=== PATIENT | male | born 1950 | race Caucasian/White ===

== ENCOUNTER → 2018-10-08 | Outpatient (CLI) | payer OTHER ==
[~2018-10-08] MED LIST: ASPIR 8181 MG PO; BYSTOLIC20 MG PO; KLOR-CON 1010 MEQ PO; LIPITOR 20 MG T20 M1 PO; NEURONTIN 300300 M1 PO; OMEPRAZOLE40 MG PO; SPIRIVA INH; SYMBICORT160 MCG/4. INH; XANAX1 MG PO
--- NOTE | ~2018-10-08 | PAINCON ---
[address] [address] PAIN MANAGEMENT CONSULTATION Name: MURIEL JACINTO JESSE Room: [facility] AlyssaRoslyn#: [id number] Admission: 10/08/18 Attend Phys: Boris Goins MD Discharge: Date of : 54 Report #: [id number] THIS REPORT FOR: //name// CC: Jonathon Goins DATE OF SERVICE: 10/08/2018 CHIEF COMPLAINT: Lower mid back, neck pain, right hip pain. HISTORY: The patient is a 68-year-old gentleman who has been referred to the pain clinic. The patient states that he has had pain, which has been problematic for a number of years. It involves his lower back as well as radiating down his legs and involving his pelvis. Notes that the pain is problematic and rates it as a 3-4 while sitting. He has tried medications in the past. About the last 10 months, he has been off opioids. He did try fentanyl and some other opioid medications and did not find that ocean transportation intermediary. They were beneficial. He has suffered from pain over the past 20 years. He has been ambulating with use of a cane. Notes that the pain is worse when he is walking, sitting, standing, climbing stairs, bending and lifting. He states that he has a history of spinal stenosis. He has seen a surgeon, but surgery at this juncture, has not been recommended secondary to his COPD. Long distance walking is excruciating. As you may recall, he has worked hard throughout his life. 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 ALLERGIES: CIPROFLOXACIN, MAMTA INHIBITORS, AND PROMETHAZINE. MEDICATIONS: Alprazolam 1 mg 4 times daily, aspirin 81 mg, Lipitor 20 mg, Symbicort 160/4.5, Bystolic 20 mg, omeprazole 40 mg, potassium 10 mEq b.i.d., and Spiriva. PAST MEDICAL HISTORY: Asthma, hypertension, lung disease, hepatitis C, joint disease/arthritis generalized anxiety disorder, insomnia, coronary artery atherosclerosis, hyperlipidemia, benign prostatic hypertrophy, occasional tremors, lumbar canal stenosis, alcoholic abuse, esophageal reflux, chronic tension type headaches, peripheral vascular disease, history of atrial fibrillation, renal calculus. PAST SURGICAL HISTORY: Stents gallbladder surgery 2014, appendectomy 2017, 2017, lesion removal 2017. SOCIAL HISTORY: He is a sheet metal layout mechanic. He has not worked in the last 9 years. REVIEW OF SYSTEMS: Headaches, hearing loss, ringing in the ears, [place] [address] PAIN MANAGEMENT CONSULTATION Name: MURIEL JACINTO Room: [facility]#: [id number] Admission: 10/08/18 Attend Phys: Boris Goins MD Discharge: Date of : 54 Report #: [id number] voice changes, shortness of breath while lying flat, asthma, wheezing, kidney stones, sexual difficulty, joint pain, joint stiffness, weakness of muscles and joint, muscle cramps, back pain, difficulty walking, recurrent headaches, lightheadedness, dizziness, numbness and tingling sensation, tremors, head injury, memory loss, confusion, nervousness, easy bruising. LABORATORY DATA: MRI of the cervical spine dated 05/22/2018 indicates: 1. C2-C3 small diffuse osteophyte complex, asymmetric to the left. Mild spinal canal stenosis, moderate left neural foraminal narrowing secondary to the left greater than right facet and uncovertebral joint arthrosis. 2. C3-C4 disk osteophyte complex, asymmetric to the left. Bogq-bx-kzxdkoie spinal canal stenosis. Moderate right and severe left neural foraminal narrowing secondary to asymmetric uncovertebral joint and facet arthropathy. 3. C4-C5 disk osteophyte complex. Mild spinal stenosis. Moderate to severe right and severe left neural foraminal narrowing secondary to uncovertebral joint and facet arthropathy. 4. C5-C6 disk osteophyte complex. Unnw-jc-ukymmsur spinal canal stenosis, left greater than right, severe bilateral neural foraminal narrowing secondary to uncovertebral joint and facet arthropathy. 5. C6-C7 disk osteophyte complex. Mild spinal canal stenosis. Mild left neural foraminal narrowing secondary to uncovertebral joint and facet arthropathy. 6. C7-T10 trace anterolisthesis and mild disk bulge. No significant spinal canal stenosis. MRI of the lumbar spine dated 11/18/2014: 1. L1-L2. Desiccation central annular disk bulge. Hypertrophic facet arthropathy and mild posterior ligamentum hypertrophy. No evidence of disk herniation, spinal stenosis or significant foraminal narrowing. Thecal sac 1.3 cm. 2. L2-L3 mild annular disk bulge. Moderate hypertrophic facet arthropathy. Mild-to moderate posterior ligamentum hypertrophy is present. This produces a mild narrowing of the central canal without evidence of high grade stenosis. There is a mild left foraminal narrowing. Thecal sac 0.8 cm AP. 3. L3-L4, mild central annular disk bulge. Moderate/marked hypertrophic facet arthropathy. There is a posterior ligamentum hypertrophy and there is a posterior epidural lipomatosis present contributing to stenosis of the spinal cord and canal. Thecal sac 0.5 cm AP. 4. L4-L5 disk degeneration and mild central annular disk bulge. There is asymmetric increased soft tissue density with left neural foramen, likely representing small left foraminal disk herniation. There is also a small focal area of asymmetry with soft tissue posterior to the L4 vertebral body with a left lateral recess of L4, possibly representing a small cranial migrated sequestered disk fragment. PAIN CLINIC ASSESSMENT/PQRS: [address] [address] PAIN MANAGEMENT CONSULTATION Name: CARMENCITAShilpaMURIEL JESSE Room: [facility]#: [id number] Admission: 10/08/18 Attend Phys: Boris Goins MD Discharge: Date of : 54 Report #: [id number] 1. History of osteoarthritis. The patient has some osteoarthritic changes in his back. He is not being treated for rheumatoid arthritis. 2. Height 5 feet 10 inches, weight 221 pounds, BMI is 38.1. 3. Vital signs: Blood pressure 152/92, heart rate 63, respiratory rate 16, room air saturation 93%. Temperature 98.2. 4. Pain intensity 3-4/10. 5. Fall history: The patient has not fallen in the last 3 months. 6. Blood thinner. The patient is not on a blood thinning medication. 7. Hypertension. The patient is being treated for hypertension. 8. Opioids greater than 6 weeks. The patient is not on opioid medication at this juncture. Has used opioids in the past. 9. Risk assessment tool, low for opioid use. 10. Functional assessment tool. 11. Recreational drug use. The patient denies use of recreational drugs. 12. Tobacco: The patient chews tobacco. 13. Alcohol: The patient states that he is not using alcohol at this juncture. PHYSICAL EXAMINATION: GENERAL: The patient is a well-developed, well-nourished white male. Appears his stated age. He is alert and oriented x 3. His affect is appropriate. Speech is fluent. HEENT: Normocephalic, atraumatic. Extraocular eye muscles intact. Sclerae nonicteric. Mucous membranes moist. NECK: Without adenopathy. Some limited range of motion in the neck area. EXTREMITIES: Upper extremity muscle strength judged to be 5-/5 for the major muscle groups in the upper extremity. HEART: Regular rate. ABDOMEN: Nontender. Bowel sounds present. MUSCULOSKELETAL: The patient has somewhat of a scoliosis to his back. Has without significant lordosis. Complains of pain in the lower portion of his back and in the thoracic area. Walks with a cane. He has been using this for about 2-3 years. Tries to maintain and keeps the weight off his right hip. Complains of pain and discomfort in the L2-L3 dermatomal distribution today. IMPRESSION: 1. Lumbar radiculopathy with L2-L3 area. 2. Asthma. 3. Hypertension. 4. Lung disease. 5. Hepatitis C. 6. Joint disease/arthritis. 7. Generalized anxiety disorder. 8. Insomnia. 9. Coronary artery atherosclerosis. 10. Hyperlipidemia. 11. [place] [address] PAIN MANAGEMENT CONSULTATION Name: MURIEL JACINTO JESSE Room: [facility] Dennis#: [id number] Admission: 10/08/18 Attend Phys: Boris Goins MD Discharge: Date of : 54 Report #: [id number] 12. Occasional tremors. 13. Lumbar canal stenosis. 14. Alcoholic abuse. 15. Esophageal reflux. 16. Chronic tension type headaches. 17. Peripheral vascular disease. 18. History of atrial fibrillation, renal calculus. RECOMMENDATION: We discussed treatment options with the patient. At this juncture, he will return to the Pain clinic at which time we would then proceed with an epidural steroid injection at the mid lumbar area with hopes of improving his pain condition. Risks and benefits again, we will again we reviewed at the time of the procedure. We would like to thank you for letting us participate in his care. We hope he continues to improve. By: [id number]. Hank Goins MD /DUSTIN
== END ==
LOC: M.PC 10:00
DX: M54.16 Radiculopathy, lumbar region (principal); J45.909 Unspecified asthma, uncomplicated; I10 Essential (primary) hypertension; I25.10 Atherosclerotic heart disease of native coronary artery without angina pectoris; E78.5 Hyperlipidemia, unspecified; K21.9 Gastro-esophageal reflux disease without esophagitis; G44.229 Chronic tension-type headache, not intractable; I73.9 Peripheral vascular disease, unspecified; I48.91 Unspecified atrial fibrillation; F41.9 Anxiety disorder, unspecified; Z88.8 Allergy status to other drugs, medicaments and biological substances; Z79.899 Other long term (current) drug therapy; Z79.82 Long term (current) use of aspirin

== ENCOUNTER → 2018-10-15 | Outpatient (CLI) | payer OTHER ==
--- NOTE | ~2018-10-15 | PAINCON ---
[address] [address] PAIN MANAGEMENT CONSULTATION Name: MURIEL JACINTO JESSE [facility] [id number] Admission: 10/15/18 Attend Phys: Boris Goins MD Discharge: Date of : 54 Report #: [id number] THIS REPORT FOR: //name// CC: Jonathon Goins DATE OF SERVICE: 10/15/2018 CHIEF COMPLAINT: Here for epidural injection. HISTORY: The patient is a 68-year-old gentleman who has been seen in the Pain Clinic. As you recall, he is having pain and discomfort, which has been problematic for a number of years. It involves his lower back. He is experiencing pain that radiates down into his pelvis. He rates his pain as a 3-4 when he is sitting. He has used medications. Over the last 10 months, he has refrained from using opioids. He has suffered pain over the last 20 years. Pain is worse when he is walking, sitting, standing, climbing stairs, bending and lifting. He has a history, as you may recall, of spinal stenosis. He has COPD. He is not a good surgical candidate at this juncture. 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 ALLERGIES: CIPROFLOXACIN, MAMTA INHIBITORS, PROMETHAZINE. CURRENT MEDICATIONS: Alprazolam 1 mg 4 times daily, aspirin 81 mg, Lipitor 20 mg, Symbicort 160/4.5, Bystolic 20 mg, omeprazole 40 mg, potassium 10 mEq b.i.d., Spiriva. PAIN CLINIC ASSESSMENT AND PQRS: 1. History of osteoarthritis: The patient has some arthritic changes in his back. He is not being treated for rheumatoid arthritis. 2. Height 5 feet 10 inches, weight 221 pounds, BMI is 31.8. 3. Vital signs: Blood pressure 152/92, heart rate 63, respiratory rate 16, room air saturation 93%, temperature 98.2. 4. Pain intensity: 3-4/10 5. Fall history: The patient has not fallen in the last 3 months. 6. Blood thinner: The patient is not on a blood thinning medication. 7. Hypertension. The patient is being treated for hypertension. 8. Opioids greater than 6 weeks: The patient is not on opioid regimen. 9. Risk assessment tool: Low for opioid low for opioid use. 10. Functional assessment tool. 11. Recreational drug use: The patient denies. 12. Tobacco: He denies smoking tobacco, but does chew tobacco. 13. Alcohol: The patient states he is not drinking alcohol at this juncture. He has used alcohol to excess in the past. PHYSICAL EXAMINATION: [place] [address] PAIN MANAGEMENT CONSULTATION Name: MURIEL JACINTO JESSE [facility]#: [id number] Admission: 10/15/18 Attend Phys: Boris Goins MD Discharge: Date of : 54 Report #: [id number] GENERAL: The patient is a well-developed, well-nourished white male. Appears his stated age. He is alert and oriented x 3. His affect is appropriate. Speech is fluent. HEENT: Normocephalic, atraumatic. Extraocular eye muscles intact. Sclerae nonicteric. Mucous membranes are moist. HEART: Regular rate. ABDOMEN: Nontender. Bowel sounds present. MUSCULOSKELETAL: Upper extremity muscle strength is judged to be 5/5 for the major muscle groups in the upper extremity. The patient has some scoliosis in his back. He is without significant lordosis. He complains of pain in the lower portion of his back and in the thoracic area. He does walk and ambulate with a cane, has been using this for about 2-3 years. He complains of pain and discomfort in the L2-L3 dermatomal distribution today. IMPRESSION: 1. Lumbar radiculopathy, L2-L3. 2. Asthma. 3. Hypertension. 4. Lung disease. 5. Hepatitis C. 6. Joint disease/arthritis. 7. Generalized anxiety disorder. 8. Insomnia. 9. Coronary artery disease/atherosclerosis. 10. Hyperlipidemia. 11. Benign prostatic hypertrophy. 12. Occasional tremors. 13. Lumbar canal stenosis. 14. Alcohol abuse. 15. Esophageal reflux. 16. Chronic tension type headaches. 17. Peripheral vascular disease. 18. History of atrial fibrillation. 19. Renal calculi. RECOMMENDATIONS: We discussed treatment options with the patient. At this juncture, we will proceed with an epidural steroid injection. Risks and benefits of the procedure were discussed. They include but are not limited to infection, worsening pain, no improvement in pain, nerve damage, paralysis, and the patient elects to proceed. PROCEDURE NOTE: The patient was taken to the procedure area. He was then assisted in getting on the examination table. His back was sterilely prepped with betadine solution. A 0.25% bupivacaine was infiltrated at the L2-L3 interspace. A 17-gauge Tuohy with loss of resistance technique was used to gain access to the epidural space. There was no CSF, heme or paresthesia. [address] [address] PAIN MANAGEMENT CONSULTATION Name: MURIEL JACINTO [facility]: [facility]#: [id number] Admission: 10/15/18 Attend Phys: Boris Goins MD Discharge: Date of : 54 Report #: [id number] 80 mg Depo-Medrol, 40 mg triamcinolone, and 2 mL of 0.25% bupivacaine was injected. The patient tolerated the procedure well. There were no complications. A total of 15 seconds fluoroscopy time was used. We would like to thank you for letting us participate in his care. We hope he continues to improve. By: [id number]. Hank Goins MD /nt
== END | disposition home or self-care (01) ==
LOC: M.PC 05:14
DX: M54.16 Radiculopathy, lumbar region (principal); G89.29 Other chronic pain; I10 Essential (primary) hypertension; I25.10 Atherosclerotic heart disease of native coronary artery without angina pectoris; I48.91 Unspecified atrial fibrillation; J45.909 Unspecified asthma, uncomplicated; M19.90 Unspecified osteoarthritis, unspecified site; F41.1 Generalized anxiety disorder; G47.00 Insomnia, unspecified; E78.5 Hyperlipidemia, unspecified; N40.0 Benign prostatic hyperplasia without lower urinary tract symptoms; K21.9 Gastro-esophageal reflux disease without esophagitis; G44.229 Chronic tension-type headache, not intractable; I73.9 Peripheral vascular disease, unspecified; Z87.442 Personal history of urinary calculi; Z86.19 Personal history of other infectious and parasitic diseases; Z79.899 Other long term (current) drug therapy; Z79.01 Long term (current) use of anticoagulants; Z98.890 Other specified postprocedural states; Z88.8 Allergy status to other drugs, medicaments and biological substances; Z79.82 Long term (current) use of aspirin

== ENCOUNTER → 2018-12-03 | Outpatient (CLI) | payer OTHER ==
[~2018-12-03] MED LIST changes: +ELIQUIS5 MG PO; +FLECAINIDE ACET50 M1 PO
--- NOTE | 2018-12-07 09:16 | PAINCON ---
[address] [address] PAIN MANAGEMENT CONSULTATION Name: MURIEL JACINTO JESSE Room: [facility] Jeannie#: [id number] Admission: 12/03/18 Attend Phys: Boris Goins MD Discharge: Date of : 54 Report #: [id number] THIS REPORT FOR: //name// CC: Jonathon Goins DATE OF SERVICE: 12/03/2018 CHIEF COMPLAINT: Here for an epidural injection, pain improved after last treatment. HISTORY: The patient is a 68-year-old gentleman who has been seen in the pain clinic because of lumbar radiculopathy. He has had problems with his back for a number of years. He has some significant arthritic changes in the low back area. He returns today with the desire to undergo another epidural steroid injection. He gleans benefit from the last injection. There have been no complications. He feels that he occasionally has some sharp pains down to his right leg. He is no longer having leg numbness. His right hip pain is problematic on occasion. He has recently been diagnosed with atrial fibrillation. Overall, things are going reasonably well. He has used gabapentin 300 mg. He has stopped taking his Eliquis for the last 3 days. He will resume this after the procedure. ALLERGIES: CIPROFLOXACIN, MAMTA INHIBITORS, PROMETHAZINE. CURRENT MEDICATIONS: Alprazolam 1 mg 4 times daily, aspirin 81 mg, Lipitor 20 mg, Symbicort 160/4.5, Bystolic 20 mg, omeprazole 40 mg, potassium 10 mEq b.i.d., Spiriva. PAIN CLINIC ASSESSMENT AND PQRS: 1. History of osteoarthritis. The patient has some arthritic changes in his low back. He is not being treated for rheumatoid arthritis. 2. Height 5 feet 10 inches, weight 219 pounds, BMI is 31. 3. Vital Signs: Blood pressure 119/78, heart rate 65, respiratory rate 16, room air saturation is 93%. 4. Temperature 98.2. 5. Pain intensity, 03/26. 6. Blood thinner. The patient has stopped taking the Eliquis for the last 3 days with a desire to undergo an epidural injection. 7. Fall history: The patient has not fallen in the last 3 months. 8. Hypertension. The patient is being treated for hypertension. 9. Opioids greater than 6 weeks. The patient is not on an opioid regimen. 10. Risk assessment tool, low for opioid use. 11. Functional assessment tool. 12. Recreational drug use, the patient denies. 13. Tobacco: The patient denies smoking cigarettes, [place] [address] PAIN MANAGEMENT CONSULTATION Name: MURIEL JACINTO JESSE Room: [facility]#: [id number] Admission: 12/03/18 Attend Phys: Boris Goins MD Discharge: Date of : 54 Report #: [id number] 14. Alcohol: The patient is not drinking alcohol on a regular basis. Did use alcohol to an excess in the past. PHYSICAL EXAMINATION: GENERAL: The patient is a well-developed, well-nourished, white male. Appears his stated age. He is alert and oriented x 3. His affect is appropriate. Speech is fluent. HEENT: Normocephalic, atraumatic. Extraocular eye muscles intact. Sclerae nonicteric. Mucous membranes are moist. NECK: Without adenopathy or JVD. HEART: Regular rate at this juncture. ABDOMEN: Nontender. Bowel sounds present. MUSCULOSKELETAL: Upper extremity muscle strength judged to be 5/5 for the major muscle groups in the upper extremity. The patient has some scoliosis in the lower portion of his back. He is without significant lordosis. Complains of pain in the lower portion of his back in the thoracic area. Walks with a cane. Complains of pain in the L2-L3 dermatomal distribution. IMPRESSION: 1. Lumbar radiculopathy, L2-L3. 2. Asthma. 3. Hypertension. 4. Lung disease. 5. Hepatitis C. 6. Joint disease/arthritis. 7. Generalized anxiety disorder. 8. Insomnia. 9. Coronary artery disease/atherosclerosis. 10. Hyperlipidemia. 11. Benign prostatic hypertrophy. 12. Occasional tremors. 13. Lumbar canal stenosis. 14. Alcohol abuse. 15. Esophageal reflux. 16. Chronic tension type headaches. 17. Peripheral vascular disease. 18. History of atrial fibrillation. 19. Renal calculi. RECOMMENDATIONS: We discussed treatment options with the patient. At this juncture, we will proceed with another epidural steroid injection. The patient noted benefits from the last injection. There were no complications. We reviewed the risks and benefits with the patient. They could include but are not limited to infection, worsening of pain, nerve damage and the patient elects to proceed. [address] [address] PAIN MANAGEMENT CONSULTATION Name: MURIEL JACINTO [facility] [id number] Admission: 12/03/18 Attend Phys: Boris Goins MD Discharge: Date of : 54 Report #: [id number] PROCEDURE NOTE: The patient was taken to the procedure area. He was then assisted in getting on the examination table. A pillow was placed under his abdomen to bolster and improve positioning. His back was sterilely prepped with Betadine solution and allowed to dry. Fluoroscopy using anterior, posterior as well as lateral viewing were implemented. A 0.25% bupivacaine was infiltrated at the L2-L3 interspace on the right. This area was then anesthetized with a 25-gauge needle and local anesthetic. A 17-gauge Tuohy with loss of resistance technique was used to gain access to the epidural space. There was no CSF, heme or paresthesia. Total of 80 mg Depo-Medrol, 40 mg triamcinolone and 2 mL of 0.25% bupivacaine was injected. The patient tolerated the procedure well. There were no complications. A total of 31 seconds fluoroscopy time was used. We would like to thank you for letting us participate in his care. We hope he continues to improve. <ELECTRONICALLY SIGNED> By: Boris Goins MD 12/07/18 0916 [id number] 2250N. Hank Goins MD /[facility]
== END | disposition home or self-care (01) ==
LOC: M.PC 04:59
DX: M54.16 Radiculopathy, lumbar region (principal); G89.29 Other chronic pain; I10 Essential (primary) hypertension; J45.909 Unspecified asthma, uncomplicated; M19.90 Unspecified osteoarthritis, unspecified site; B19.20 Unspecified viral hepatitis C without hepatic coma; I25.10 Atherosclerotic heart disease of native coronary artery without angina pectoris; F41.1 Generalized anxiety disorder; E78.5 Hyperlipidemia, unspecified; N40.0 Benign prostatic hyperplasia without lower urinary tract symptoms; G47.00 Insomnia, unspecified; K21.9 Gastro-esophageal reflux disease without esophagitis; G44.229 Chronic tension-type headache, not intractable; I73.9 Peripheral vascular disease, unspecified; I48.91 Unspecified atrial fibrillation; Z87.442 Personal history of urinary calculi; Z79.01 Long term (current) use of anticoagulants; Z98.890 Other specified postprocedural states; Z79.899 Other long term (current) drug therapy; Z88.8 Allergy status to other drugs, medicaments and biological substances

== ENCOUNTER → 2019-01-05 | Outpatient (CLI) | payer OTHER ==
--- NOTE | 2019-01-06 09:09 | PAINCON ---
[address] [address] PAIN MANAGEMENT CONSULTATION Name: MURIEL JACINTO [id number] Admission: 01/05/19 Attend Phys: Boris Goins MD Discharge: Date of : 54 Report #: [id number] THIS REPORT FOR: //name// CC: SHANELLE Goins DATE OF SERVICE: 01/05/2019 CHIEF COMPLAINT: Low back pain as well as pain in the right hip and the groin area. HISTORY: The patient is a 68-year-old gentleman, who has been seen in the pain clinic because of lumbar radiculopathy. He has undergone epidural steroid injections. The first injection was quite beneficial. He noticed some increase in his back pain as well as the leg pain. Last injection was helpful, but not as much as the first. He has returned today with the hopes of undergoing a third epidural steroid injection with increased pain benefit. He has significant arthritic changes and pain in his neck. He has limitation of movement of his right leg. He has some significant limitations in inversion, eversion, extension, and flexion of his hip. This is on the right side. Also, has a history of atrial fibrillation. He has stopped taking his Eliquis with the hopes of undergoing an injection today. ALLERGIES: CIPROFLOXACIN, MAMTA INHIBITORS, PROMETHAZINE. CURRENT MEDICATIONS: Alprazolam 1 mg 4 times daily, aspirin 81 mg, Lipitor 20 mg, Symbicort 160/4.5, Bystolic 20 mg, omeprazole 40 mg, potassium 10 mEq, Spiriva. PAIN CLINIC ASSESSMENT AND PQRS: 1. The patient has some arthritic changes in his low back. He is not being treated for rheumatoid arthritis. 2. Height 5 feet 10 inches, weight is 221 pounds, BMI is 31. 3. Vital signs: Blood pressure 136/79, heart rate 54, respiratory rate 16, room air saturation 91%, temperature 98.5. 4. Pain intensity 05/24. 5. Fall history: The patient has not fallen in the last 3 months. 6. Blood thinner. The patient has stopped taking his blood thinning medications today with a desire to undergo an epidural injection. 7. Opioids greater than 6 weeks. The patient is not receiving any frequent opioid regimen. 8. Risk assessment tool, low for opioid use. 9. Functional assessment tool. 10. Recreational drug use. The patient denies. 11. Tobacco: The patient denies smoking, [place] [address] PAIN MANAGEMENT CONSULTATION Name: MURIEL JACINTO Room: [facility]#: [id number] Admission: 01/05/19 Attend Phys: Boris Goins MD Discharge: Date of : 54 Report #: [id number] 12. Alcohol: The patient is not drinking alcohol on a regular basis. Did use alcohol to an excess in the past. PHYSICAL EXAMINATION: GENERAL: The patient is a well-developed, well-nourished white male. Appears his stated age. He is alert and oriented x 3. His affect is appropriate. Speech is fluent. HEENT: Normocephalic, atraumatic. Extraocular eye muscles intact. Sclerae nonicteric. Mucous membranes are moist. NECK: Without adenopathy or JVD. HEART: Regular rate. History of atrial fibrillation. ABDOMEN: Nontender. Bowel sounds present. MUSCULOSKELETAL: Upper extremity muscle strength judged to be 5/5 for the major muscle groups in the upper extremity. The patient walks with use of a cane on the right side because of weakness in his right leg. He has limited range of motion with the right leg. He is unable to cross his right leg up on the left. He has some limited movement to internal and external rotation of his leg. This causes some pain and discomfort in the area of his groin. Has a tender area in the area of the right greater trochanteric bursa. Walks with use of a cane. Has a very antalgic gait. Complains of pain in the L3-L4 dermatomal distribution at this point. IMPRESSION: 1. Lumbar radiculopathy with L3-L4. 2. Asthma. 3. Hypertension. 4. Lung disease. 5. Hepatitis C. 6. Joint disease/arthritis. 7. Generalized anxiety disorder. 8. Insomnia. 9. Coronary artery disease/atherosclerosis. 10. Hyperlipidemia. 11. Benign prostatic hypertrophy. 12. Occasional tremors. 13. Lumbar canal stenosis. 14. Alcohol abuse. 15. Esophageal reflux. 16. Chronic tension type headaches. 17. Peripheral vascular disease. 18. History of atrial fibrillation. 19. Renal cell calculi. RECOMMENDATIONS: We discussed treatment options with the patient. Risks and benefits of an epidural steroid injection were discussed. They include but are not limited to infection, worsening pain, no improvement in pain, spinal [facility] [address] [place] [address] PAIN MANAGEMENT CONSULTATION Name: MURIEL JACINTO Room: [facility]#: [id number] Admission: 01/05/19 Attend Phys: Boris Goins MD Discharge: Date of : 54 Report #: [id number] headache, and the patient elects to proceed. We have discussed the treatment with the patient. He does have a significant amount of arthritis. We will proceed with an epidural steroid injection at the L3-L4 interspace. He complains the pain is radiating down the mid portion of his thigh and pain toward the medial portion of his knee. PROCEDURE NOTE: The patient was assisted in getting on the examination table. His back was sterilely prepped with a Betadine solution. A pillow was placed under his abdomen to bolster and improve positioning. Fluoroscopy using anterior, posterior as well as lateral viewing were used to identify the L3-L4 interspace. This area had been sterilely prepped with Betadine. A 25-gauge needle was then used to anesthetize the midline area. A 0.25% bupivacaine was infiltrated. A 17-gauge Tuohy with loss of resistance technique was used to gain access to the epidural space. There was no CSF, heme or paresthesia. Total of 80 mg Depo-Medrol, 40 mg triamcinolone and 2 mL of 0.25% bupivacaine was injected. The patient tolerated the procedure well. There were no complications. The patient's pain decreased to 2/10 at the time of his discharge. Total fluoroscopy time was 10 seconds. We would like to thank you for letting us participate in his care. We hope he continues to improve. He will call us if he has any concerns. <ELECTRONICALLY SIGNED> By: Boris Goins MD 01/06/19 0909 [id number]. MD mario Lovell
== END | disposition home or self-care (01) ==
LOC: M.PC 05:22
DX: M54.5 Low back pain (principal); M54.16 Radiculopathy, lumbar region; G89.29 Other chronic pain; I10 Essential (primary) hypertension; I25.10 Atherosclerotic heart disease of native coronary artery without angina pectoris; J45.909 Unspecified asthma, uncomplicated; M19.90 Unspecified osteoarthritis, unspecified site; F41.1 Generalized anxiety disorder; G47.00 Insomnia, unspecified; E78.5 Hyperlipidemia, unspecified; N40.0 Benign prostatic hyperplasia without lower urinary tract symptoms; K21.9 Gastro-esophageal reflux disease without esophagitis; G44.229 Chronic tension-type headache, not intractable; I73.9 Peripheral vascular disease, unspecified; I48.91 Unspecified atrial fibrillation; Z87.442 Personal history of urinary calculi; Z98.890 Other specified postprocedural states; Z79.899 Other long term (current) drug therapy; Z86.19 Personal history of other infectious and parasitic diseases

== ENCOUNTER → 2019-05-18 | Outpatient (CLI) | payer OTHER ==
--- NOTE | 2019-06-01 09:57 | PAINCON ---
[address] [address] PAIN MANAGEMENT CONSULTATION Name: MURIEL JACINTO Room: [facility].#: [id number] Admission: 05/18/19 Attend Phys: Boris Goins MD Discharge: Date of : 54 Report #: [id number] THIS REPORT FOR: //name// cc: Jonathon Barrera MD, Bruce D. MD ~ THIS REPORT FOR: //name// CC: Jonathon Goins DATE OF SERVICE: 05/18/2019 PRIMARY PHYSICIAN: Jonathon Barrera MD CHIEF COMPLAINT: Low back pain and here for an epidural injection. HISTORY: The patient is a 68-year-old gentleman who has been experiencing lumbar radiculopathy. Epidural steroid injections in the past have been beneficial. He has noticed a return of pain and discomfort in his back and leg. He has returned today with the hopes of undergoing another epidural injection. Notes that the pain in his right hip has increased. He is having pain in his right leg. Notes that his right leg "gives out." He has been scheduled to see an orthopedic doctor in the near future. He rates his pain as a 9/10. He would like to proceed with another epidural steroid injection at this juncture. He has not had any complications from epidural steroid injections in the past. He has stopped taking his Eliquis with the thought of undergoing an epidural steroid injection today. ALLERGIES: CIPROFLOXACIN, MAMTA INHIBITORS, PROMETHAZINE. CURRENT MEDICATIONS: Alprazolam 1 mg 4 times daily, aspirin 81 mg, Lipitor 20 mg, Symbicort 160/4.5, Bystolic 20 mg, omeprazole 40 mg, potassium 10 mEq, Spiriva. PAIN CLINIC ASSESSMENT AND PQRS: 1. The patient has some arthritic changes in his low back. He is not being treated for rheumatoid arthritis. 2. Height 5 feet 10 inch, weight 220 pounds, BMI is 31. 3. Vital Signs: Blood pressure is 101/74, heart rate 104, respiratory rate 16, room air saturation 91%, temperature 98.0. 4. Pain intensity 9/10. 5. Fall history: The patient has not fallen in the last 3 months. 6. Blood thinner. The patient has stopped taking his blood thinning medication with a desire to undergo an epidural steroid injection. 7. Opioids greater than 6 weeks. The patient is [place] [address] PAIN MANAGEMENT CONSULTATION Name: MURIEL JACINTO Room: [facility]#: [id number] Admission: 05/18/19 Attend Phys: Boris Goins MD Discharge: Date of : 54 Report #: [id number] 8. Risk assessment tool, low for opioid use. 9. Functional assessment tool. 10. Recreational drug use: The patient denies. 11. Tobacco: The patient denies using tobacco, but he does chew. 12. Alcohol: The patient does not drink alcoholic beverages at this juncture. He did drink alcohol to excess in the past. PHYSICAL EXAMINATION: GENERAL: The patient is a well-developed, well-nourished white male. Appears his stated age. He is alert and oriented x 3. His affect is appropriate. Speech is fluent. HEENT: Normocephalic, atraumatic. Extraocular eye muscles intact. Sclerae nonicteric. Mucous membranes are moist. ABDOMEN: Nontender. Bowel sounds present. MUSCULOSKELETAL: Upper extremity muscle strength judged to be 5/5 for the major muscle groups in the upper extremity. The patient walks with use of a cane with right sided weakness because of his right leg. He has a limited range of motion. IMPRESSION: 1. Lumbar radiculopathy, L3-L4. 2. Asthma. 3. Hypertension. 4. Lung disease. 5. Hepatitis C. 6. Joint disease/arthritis. 7. Generalized anxiety disorder. 8. Insomnia. 9. Coronary artery disease/atherosclerosis. 10. Hyperlipidemia. 11. Benign prostatic hypertrophy. 12. Occasional tremors. 13. Lumbar canal stenosis. 14. Alcohol abuse. 15. Esophageal reflux. 16. Chronic tension type headaches. 17. Peripheral vascular disease. 18. History of atrial fibrillation. 19. Renal cell calculi. RECOMMENDATIONS: We discussed treatment options with the patient. Risks and benefits of epidural steroid injection were discussed. The patient elects to proceed with an injection. Risks and benefits which could include but are not limited to infection, worsening of pain, no improvement in pain, nerve damage were discussed and the patient [place] [address] PAIN MANAGEMENT CONSULTATION Name: MURIEL JACINTO JESSE Room: [facility]#: [id number] Admission: 05/18/19 Attend Phys: Boris Goins MD Discharge: Date of : 54 Report #: [id number] PROCEDURE NOTE: The patient was taken to the procedure area. He was then assisted in getting on the examination table. His back was sterilely prepped with a Betadine solution. A 0.25% bupivacaine was infiltrated at the L5-S1 area. This area had been sterilely prepped with Betadine and infiltrated with 0.25% bupivacaine. A pillow had been placed under the abdomen to facilitate the injection. A 25-gauge needle with 0.25% bupivacaine was infiltrated at the L5-S1 area. A 17-gauge Tuohy with loss of resistance technique was used to gain access to the epidural space using fluoroscopy anterior as well as lateral. Total of 80 mg Depo-Medrol, 40 mg triamcinolone and 2 mL of 0.25% bupivacaine was injected. The patient tolerated the procedure well. There were no complications. He remained in the pain clinic for an appropriate amount of time. He will follow up in the future as needed. We would like to thank you for letting us participate in his care. We hope he continues to improve. <ELECTRONICALLY SIGNED> By: Boris Goins MD 06/01/19 0957 [id number] [id number]. Hank Goins MD /jn
== END | disposition home or self-care (01) ==
LOC: M.PC 05-11 10:00
DX: M54.16 Radiculopathy, lumbar region (principal); G89.29 Other chronic pain; I10 Essential (primary) hypertension; I25.10 Atherosclerotic heart disease of native coronary artery without angina pectoris; I48.91 Unspecified atrial fibrillation; E78.5 Hyperlipidemia, unspecified; J45.909 Unspecified asthma, uncomplicated; N40.0 Benign prostatic hyperplasia without lower urinary tract symptoms; M19.90 Unspecified osteoarthritis, unspecified site; I73.9 Peripheral vascular disease, unspecified; F41.1 Generalized anxiety disorder; G47.00 Insomnia, unspecified; B19.20 Unspecified viral hepatitis C without hepatic coma; K21.9 Gastro-esophageal reflux disease without esophagitis; G44.229 Chronic tension-type headache, not intractable; Z98.890 Other specified postprocedural states; Z79.899 Other long term (current) drug therapy; Z87.442 Personal history of urinary calculi